=== PATIENT | female | born 2000 | race Caucasian/White ===

== ENCOUNTER 2024-01-28 00:36 | Emergency (ER) | payer SELFPAY ==
--- NOTE | ~2024-01-28 | CT_ITS ---
EXAMINATION: CT ABDOMEN AND PELVIS WITH CONTRAST CLINICAL INFORMATION: Reason for Exam lower abdominal pain brb per rectum COMPARISON: None available. TECHNIQUE: Multidetector volumetric images were obtained from the superior aspect of the liver through the pubic symphysis following administration 85 mL of Omnipaque 350 intravenous contrast. Sagittal and coronal reformatted images were obtained on the technologist's workstation. Oral contrast: No This CT examination was performed using dose optimization techniques as appropriate, variously including the following: *Automated exposure control *Adjustment of mA and/or kV according to patient size (this includes techniques or standardized protocols for targeted exams where dose is matched to indication/reason for exam; i.e. extremities or head) *Use of iterative reconstruction technique DLP: 380 mGy-cm FINDINGS: LUNG BASES: The visualized lung bases are unremarkable. LIVER, GALLBLADDER, AND BILIARY TREE: The liver is prominent in size measuring approximately 20 cm in length. No focal hepatic lesion or biliary ductal dilatation is present. The gallbladder is unremarkable. PANCREAS: Unremarkable. SPLEEN: Unremarkable. ADRENAL GLANDS: Unremarkable. KIDNEYS AND URETERS: Bilateral nephrograms are symmetric. No hydronephrosis or obstructing calculus identified. There is a 3 mm right lower pole renal calculus. BLADDER: Mildly distended and grossly unremarkable. GASTROINTESTINAL TRACT: No evidence of bowel obstruction or significant wall thickening. The appendix is unremarkable. No free fluid or free air is seen. ABDOMINAL WALL: No significant hernia is appreciated. LYMPH NODES: Normal. VASCULAR: Unremarkable. PELVIC VISCERA: Bilateral adnexal cysts are suspected measuring up to 3.6 cm on the left and 3.1 cm on the right. The right cyst measures simple fluid density, while the left cyst measures mildly greater than simple fluid density abscess 27 Hounsfield units. OSSEOUS STRUCTURES: Unremarkable. CT/CT abdomen pelvis w IV con IMPRESSION: 1. No acute bowel abnormality identified. 2. Bilateral adnexal cysts measuring up to 3.6 cm on the left and 3.1 cm on the right. The left cyst measures mildly greater than simple fluid density, which could reflect a hemorrhagic cyst. Sonographic follow-up in 6-8 weeks is recommended. 3. Right lower pole 3 mm renal calculus without hydronephrosis. Electronically signed by: Danial Carver MD 01/28/2024 03:38 AM EDT
[2024-01-28 00:40] VITALS: BP 122/82; PULSE 79; RESP 14; TEMP 36.1; O2SAT 100; BMI 23.0
[2024-01-28 01:43] LABS: Basophils Percent Auto 0.6 % (0-2); Eosinophils Absolute Auto 0.1 X10*3/uL (0.0-0.4); Eosinophils Percent Auto 1.1 % (0-4); Hematocrit 40.2 % (37.0-47.0); Hemoglobin 13.9 g/dl (12.0-16.0); Imm Gran Abs Auto 0.02 X10*3/uL (0.00-0.03); Imm Gran Pct Auto 0.3 % (0.0-0.4); Lymphocytes Absolute Auto 1.5 X10*3/uL (1.2-4.9); Lymphocytes Percent Auto 20.9 % (20-40); MANUAL DIFF FLAG NO; Mean Corpuscular HGB Conc 34.6 g/dl (31.0-35.0); Mean Corpuscular Hemoglobin 31.5 pg (27.0-33.0); Mean Corpuscular Volume 91.2 fL (80.0-98.0); Mean Platelet Volume 9.1 fL (9.4-12.3); Monocytes Absolute Auto 0.6 X10*3/uL (0.1-1.2); Monocytes Percent Auto 9.1 % (2-11); Neutrophils Absolute Auto 4.8 x10*3/uL (2.0-8.3); Platelet Count 204 X10*3/uL (160-400); Red Blood Count 4.41 X10*6/uL (4.20-5.50); White Blood Count 7.1 X10*3/uL (4.8-10.8)
[2024-01-28 02:03] LABS: OBS Int Ctl Valid YES; OBS1 POSITIVE (NEGATIVE)
[2024-01-28 02:06] LABS: Alanine Aminotransferase 9 U/L (0-31); Albumin Level 4.3 g/dL (3.5-5.0); Alkaline Phosphatase 58 U/L (39-117); Anion Gap 13 (12-20); Aspartate Amino Transferase 15 U/L (5-31); Bilirubin Total 0.2 mg/dL (0.0-1.0); Blood Urea Nitrogen 11 mg/dL (9-16); Calcium 8.7 mg/dL (8.4-10.2); Carbon Dioxide 21 mmol/L (22-29); Chloride 110 mmol/L (96-108); Estimated Glomerular Filt Rate > 60; Glucose Random 107 mg/dL (60-115); HCG Quantitative < 2 mIU/mL; Lipase 15 U/L (8-78); Potassium 3.7 mmol/L (3.3-5.1); Sodium 140 mmol/L (135-145); Total Protein 6.9 g/dL (6.5-8.0)
--- NOTE | 2024-01-28 02:16 | ED_ITS ---
HPI - GI Bleed General Chief complaint: GI Bleed Stated complaint: stomach pain Time Seen by Provider: 01/28/24 01:28 Source: patient Mode of arrival: ambulatory Limitations: no limitations History of Present Illness ED Provider: DUKE MATSON Narrative: 23 yo female with PMH of prior rectal bleeding with normal colonscopy a few years back in [place] who notes tonight around 1145pm she started with lower abdominal pressure and cramps then 2 episodes of just steffany blood in toilet. No n/v no fevers. She is not on thinners. She has no hx of Crohns, UC, celiac in her family. No food exposures, abx use, travel hx MD complaint: gross hematochezia Onset (ago): hour(s) (few) Pain Consistency: intermittent Severity: mild Relieving factors: none Exacerbating factors: bowel movement Context: history of GI bleed Associated symptoms: abdominal pain Treatments Prior to Arrival: none Related Data Allergies Allergy/AdvReac Type Severity Reaction Status Date / Time No Known Allergies Allergy Verified 01/28/24 00:42 Review of Systems 2 Review of Systems: Constitutional : No Weight loss, No Fever, No Chills ENT/Mouth : No sore throat, No Rhinorrhea Eyes: No Swelling, No Redness Cardiovascular : No Chest Pain, No SOB, NoEdema Respiratory : No Cough, No Sputum, No Wheezing Gastrointestinal : no Nausea, no Vomiting, no Diarrhea, positive abdominal Pain, pos Hematochezia, No Melena Genitourinary : No Dysuria, No Urinary Frequency, No Hematuria, No Urgency Musculoskeletal : No joint pain, No Myalgias, No Joint Swelling Skin : No Skin Lesions, No rash Neuro : No Weakness, No Numbness, No Dizziness, No Headache Psych : No Anxiety/Panic, No Depression All other systems reviewed and are negative. [facility] Past Medical History Attestation statement: The following information was validated with the patient. Source: old records reviewed Medical History Rectal bleed Social History Social History (Updated 01/28/24 @ 02:26 by Danielle Potts DO) Patient Tobacco Use Status: Never used Tobacco Advance Directives: No Advance Directives Information Provided: Yes Do you have a plan to hurt others: No Plan Physical Exam 2 Vital Signs: Vital Signs: Last Vital Signs Temp 98.2 F 01/28/24 02:41 Pulse 77 01/28/24 02:41 Resp 17 01/28/24 02:41 BP 101/67 01/28/24 02:41 Pulse Ox 94 01/28/24 02:41 O2 Del Method Room Air 01/28/24 02:41 BMI result Body Mass Index 23.0 Appearance: Alert. Oriented X3. No acute distress. Eyes: Pupils equal, round and reactive to light. ENT: Pharynx normal. Neck: Normal inspection. Neck supple. CVS: Normal heart rate and rhythm. Pulses normal. Respiratory: No respiratory distress. Breath sounds normal. Abdomen: Soft and nontender. Rectal: pink noted on fingertip Skin: Skin warm and dry. Normal skin color. Normal skin turgor. Extremities: No lower extremity edema. No calf ttp Neuro: Oriented X 3. No motor deficit. No sensory deficit. Medications Administered Discontinued Medications Generic Name Dose Route Start Last Admin Trade Name Freq PRN Reason Stop Dose Admin Lactated Ringer's 1,000 mls @ 999 mls/hr 01/28/24 01:48 01/28/24 03:48 Lr IV 01/28/24 02:48 Infused .Q1H1M ONE Infusion Iohexol 85 ml 01/28/24 02:28 01/28/24 02:28 Iohexol 350 Mg/Ml 100 Ml Infus..Btl IV 01/28/24 02:29 85 ml ONCE ONE Administration Medical Decision Making Medical Decision Making [facility] Narrative: 23 yo female with PMH of rectal bleeding and prior colonoscopy has rectal bleeding again with lower abdominal pain denies travel, fevers, n/v and abx use at this time will obtain basic labs, occult study and CT scan for colitis. Will monitor closely Differential Diagnosis Differential Diagnoses: The differential diagnosis associated with the presentation includes rectal bleed, colitis Admission/Observation Consideration of admission/observation: Escalation of care including admission/observation considered negative CT scan repeat H/H at 5 hour henry from onset no anemia stable for DC Lab Data [facility] Lab Attestation statement: I reviewed the patient's lab results. 01/28/24 03:59 01/28/24 01:38 Labs: Lab Results 01/28/24 01/28/24 01/28/24 Range/Units 01:38 01:57 02:29 WBC 7.1 (4.8-10.8) X10*3/uL RBC 4.41 (4.20-5.50) X10*6/uL Hgb 13.9 (12.0-16.0) g/dl Hct 40.2 (37.0-47.0) % MCV 91.2 (80.0-98.0) fL MCH 31.5 (27.0-33.0) pg MCHC 34.6 (31.0-35.0) g/dl RDW 12.0 (11.0-16.0) % Plt Count 204 (160-400) X10*3/uL MPV 9.1 L (9.4-12.3) fL Immature Gran % (Auto) 0.3 (0.0-0.4) % Neut % (Auto) 68.0 (45-73) % Lymph % (Auto) 20.9 (20-40) % [place] % (Auto) 9.1 (2-11) % Eos % (Auto) 1.1 (0-4) % Baso % (Auto) 0.6 (0-2) % Lymph # (Auto) 1.5 (1.2-4.9) X10*3/uL [place] # (Auto) 0.6 (0.1-1.2) X10*3/uL Eos # (Auto) 0.1 (0.0-0.4) X10*3/uL Baso # (Auto) 0.0 (0.0-0.2) X10*3/uL Abs Immat Gran (auto) 0.02 (0.00-0.03) X10*3/uL Absolute Neuts (auto) 4.8 (2.0-8.3) x10*3/uL Absolute Nucleated RBC 0.000 (0.0-0.012) X10*3/uL Nucleated RBC % (auto) 0.0 (0.0-0.2) /100WBC Sodium 140 (135-145) mmol/L Potassium 3.7 (3.3-5.1) mmol/L Chloride 110 H (96-108) mmol/L Carbon Dioxide 21 L (22-29) mmol/L Anion Gap 13 (12-20) BUN 11 (9-16) mg/dL Creatinine 0.69 (0.5-1.4) mg/dL Estim Creat Clear Calc 104.0 Estimated GFR > 60 Random Glucose 107 (60-115) mg/dL Calcium 8.7 (8.4-10.2) mg/dL Total Bilirubin 0.2 (0.0-1.0) mg/dL AST 15 (5-31) U/L ALT 9 (0-31) U/L Alkaline Phosphatase 58 (39-117) U/L Total Protein 6.9 (6.5-8.0) g/dL Albumin 4.3 (3.5-5.0) g/dL Lipase 15 (8-78) U/L Beta HCG, Quant < 2 mIU/mL Urine Color Yellow Urine Appearance Clear Urine pH 5.5 (5.0-9.0) Ur Specific [place] <= 1.005 (1.005-1.025) Urine Protein Negative (Neg-Trace) mg/dL Urine Glucose (UA) Negative (Negative) mg/dL Urine Ketones Negative (Negative) mg/dL Urine Blood Negative (Negative) Urine Nitrite Negative (Negative) Ur Leukocyte Esterase Negative (Negative) Urine RBC 0-2 (0-2) /HPF Urine WBC 0-5 (0-5) /HPF Ur Squamous Epith Cells 0-2 (0-2) /HPF Urine Bacteria None Seen (None Seen) Hyaline Casts 0-2 (0-2) /LPF Stool Occult Blood POSITIVE (NEGATIVE) 01/28/24 Range/Units 03:59 WBC 6.6 (4.8-10.8) X10*3/uL RBC 4.35 (4.20-5.50) X10*6/uL Hgb 13.9 (12.0-16.0) g/dl Hct 39.7 (37.0-47.0) % MCV 91.3 (80.0-98.0) fL MCH 32.0 (27.0-33.0) pg MCHC 35.0 (31.0-35.0) g/dl RDW 12.0 (11.0-16.0) % Plt Count 191 (160-400) X10*3/uL MPV 9.1 L (9.4-12.3) fL Immature Gran % (Auto) (0.0-0.4) % Neut % (Auto) (45-73) % Lymph % (Auto) (20-40) % [place] % (Auto) (2-11) % Eos % (Auto) (0-4) % Baso % (Auto) (0-2) % Lymph # (Auto) (1.2-4.9) X10*3/uL [place] # (Auto) (0.1-1.2) X10*3/uL Eos # (Auto) (0.0-0.4) X10*3/uL Baso # (Auto) (0.0-0.2) X10*3/uL Abs Immat Gran (auto) (0.00-0.03) X10*3/uL Absolute Neuts (auto) (2.0-8.3) x10*3/uL Absolute Nucleated RBC 0.000 (0.0-0.012) X10*3/uL Nucleated RBC % (auto) 0.0 (0.0-0.2) /100WBC Sodium (135-145) mmol/L Potassium (3.3-5.1) mmol/L Chloride (96-108) mmol/L Carbon Dioxide (22-29) mmol/L Anion Gap (12-20) BUN (9-16) mg/dL Creatinine (0.5-1.4) mg/dL Estim Creat Clear Calc Estimated GFR Random Glucose (60-115) mg/dL Calcium (8.4-10.2) mg/dL Total Bilirubin (0.0-1.0) mg/dL AST (5-31) U/L ALT (0-31) U/L Alkaline Phosphatase (39-117) U/L Total Protein (6.5-8.0) g/dL Albumin (3.5-5.0) g/dL Lipase (8-78) U/L Beta HCG, Quant mIU/mL Urine Color Urine Appearance Urine pH (5.0-9.0) Ur Specific [place] (1.005-1.025) Urine Protein (Neg-Trace) mg/dL Urine Glucose (UA) (Negative) mg/dL Urine Ketones (Negative) mg/dL Urine Blood (Negative) Urine Nitrite (Negative) Ur Leukocyte Esterase (Negative) Urine RBC (0-2) /HPF Urine WBC (0-5) /HPF Ur Squamous Epith Cells (0-2) /HPF Urine Bacteria (None Seen) Hyaline Casts (0-2) /LPF Stool Occult Blood (NEGATIVE) Independent Interpretation I performed an independent interpretation of an: CT Scan (no colitis) Radiology Impression Discussion of test interpretation with radiology: I have reviewed the radiologist's reading. Discharge Plan Discharge Clinical Impression: Bright red rectal bleeding Patient Disposition: Home, Self-Care Instructions: Rectal Bleeding (ED) Additional Instructions: labs reassuring and repeat no drop in hemoglobin return for worsening symptoms or any other concerns follow up with outpatient ultrasound of your ovaries given CT scan please call the GI doctor office listed below return for worsening bleeding, fevers, pain, clots or any other concerns avoid motrin and aspirin CT/CT abdomen pelvis w IV con IMPRESSION: 1. No acute bowel abnormality identified. 2. Bilateral adnexal cysts measuring up to 3.6 cm on the left and 3.1 cm on the right. The left cyst measures mildly greater than simple fluid density, which could reflect a hemorrhagic cyst. Sonographic follow-up in 6-8 weeks is recommended. 3. Right lower pole 3 mm renal calculus without hydronephrosis. Referrals: [facility] [place] [facility] [Provider Group] Stand Alone Forms: Work/School Release Print Language: Urdu
[2024-01-28] MEDS: iohexoL 350 MG/ML 100 ML INFUS..BTL 85 ML IV (02:28)
[2024-01-28] MEDS: Lactated Ringers 1,000 ML 999 ML IV (02:28)
[2024-01-28 02:36] LABS: Appearance Urine Clear; Color Urine Yellow; Glucose Urine UA Negative (Negative); Leukocyte Esterase Urine Negative (Negative); Nitrite Urine Negative (Negative); PH 5.5 (5.0-9.0); Specific Gravity - Urine <= 1.005 (1.005-1.025); Urine Blood Negative (Negative); Urine Ketones Negative (Negative); Urine Protein Negative (Neg-Trace)
[2024-01-28 02:41] VITALS: BP 101/67; PULSE 77; RESP 17; TEMP 36.8; O2SAT 94
[2024-01-28 02:59] LABS: Bacteria Urine None Seen (None Seen); Hyaline Casts Urine 0-2 /LPF (0-2); RBC Urine 0-2 /HPF (0-2); Squamous Epithelial Cell Urine 0-2 /HPF (0-2); WBC Urine 0-5 /HPF (0-5)
--- NOTE | 2024-01-28 04:01 | PC.NURSE ---
repeat labs obtained/sent to lab.
[2024-01-28 04:04] LABS: Hematocrit 39.7 % (37.0-47.0); Hemoglobin 13.9 g/dl (12.0-16.0); Mean Corpuscular Volume 91.3 fL (80.0-98.0); Mean Platelet Volume 9.1 fL (9.4-12.3); Platelet Count 191 X10*3/uL (160-400); Red Blood Count 4.35 X10*6/uL (4.20-5.50); White Blood Count 6.6 X10*3/uL (4.8-10.8)
[2024-01-28 04:24] VITALS: BP 110/69; PULSE 80; RESP 16; TEMP 36.4; O2SAT 100
== END 2024-01-28 04:25 | disposition home or self-care (01) ==
PROVIDERS: Physician Assistant; Emergency Provider Emergency Medicine
DX: K62.5 Hemorrhage of anus and rectum (principal); R10.2 Pelvic and perineal pain; R11.0 Nausea; Z79.899 Other long term (current) drug therapy
CPT/HCPCS: 36415; 74177; 80053; 81001; 82272; 83690; 84702; 85025; 85027; 96360; 99284; J7120; Q9967

== ENCOUNTER 2024-04-07 07:20 | Outpatient (AMB) | payer BC, SELFPAY ==
--- NOTE | 2024-04-07 07:26 | MHC.OFFVIS ---
Vital Signs 04/07/24 07:37 Height 5 ft 3 in Weight 131 lb BMI 23.2 BP 97/61 Blood Pressure Location Lt brachial Position Sitting Pulse 81 Intake Visit Reasons: ER referred, Rectal Bleeding Intake Note: Patient new consult after ER visit due her rectal bleeding. Patient cc: rectal bleeding with burning sensation on and off. Denies any other GI issues for today visit. Momd Teacher Required: No Accompanied by: Self / Same As Patient Allergies No Known Allergies Allergy (Verified 04/07/24 07:25) Medication List - Last Reconciled 04/07/24 by Celi Byrne MD No Known Home Meds HPI HPI ER referred, Rectal Bleeding: Details: GI clinic visit for this 23 YF for evaluation of rectal bleeding TODAY'S VISIT: Rectal bleeding on and off for a few years. Had a colonoscopy in 2021 at [place], [place] and was normal per patient - ? internal hemorrhoids. [place] better for a while and then she had recurrent symptoms Rectal bleeding almost daily -usually BRB, ?mixed with stool, in the toilet water and on the TP. Notes sharp stomach pains, burning and itching in the anal area. BMs can be intermittently painful. Notes cramps in the lower back. Goes back and forth between constipation and diarrhea (constipation 3-4/7 days) - no medication. Eats a lot of bananas, asparagus a few nights a week. She can have acid reflux every other day depending on what she eats. Notes regurgitation if she eats pasta. Patient denies symptoms of dysphagia, change in appetite. Has gained 10 lbs over the past few months. Patient denies major cardiac or pulmonary problems, Pt admits to loud snoring and denies sleep apnea Denies problems with anesthesia in the past. Denies being on chronic anticoagulation. Takes Ibuprofen infrequently for menstrual cramps. 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 Patient denies known family history of colon polyps, colon cancer or other GI malignancies. PAST EGD/COLONOSCOPY: 2021 LABS IN [place] [facility] : Reviewed IMAGING STUDIES: 01/[address] SCAN SHOWED: 1. No acute bowel abnormality identified. 2. Bilateral adnexal cysts measuring up to 3.6 cm on the left and 3.1 cm on the right. The left cyst measures mildly greater than simple fluid density, which could reflect a hemorrhagic cyst. Sonographic follow-up in 6-8 weeks is recommended. 3. Right lower pole 3 mm renal calculus without hydronephrosis. PAST GI HISTORY BY REVIEW OF MEDICAL RECORDS: 01/28/24 PATIENT WAS SEEN AT [facility] [place] [facility] WITH RECTAL BLEEDIN yo female with PMH of prior rectal bleeding with normal colonscopy a few years back in [place] who notes tonight around 1145pm she started with lower abdominal pressure and cramps then 2 episodes of just steffany blood in toilet. No n/v no fevers. She is not on thinners. She has no hx of Crohns, UC, celiac in her family. No food exposures, abx use, travel hx complaint: gross hematochezia Onset (ago): hour(s) (few) Pain Consistency: intermittent Severity: mild Relieving factors: none Exacerbating factors: bowel movement Context: history of GI bleed Associated symptoms: abdominal pain Treatments Prior to Arrival: none 23 yo female with PMH of rectal bleeding and prior colonoscopy has rectal bleeding again with lower abdominal pain denies travel, fevers, n/v and abx use at this time will obtain basic labs, occult study and CT scan for colitis. Will monitor closely Differential Diagnosis Differential Diagnoses: The differential diagnosis associated with the presentation includes rectal bleed, colitis Admission/Observation Consideration of admission/observation: Escalation of care including admission/observation considered negative CT scan repeat H/H at 5 hour henry from onset no anemia stable for DC [facility] Medical History (Updated 04/07/24 @ 08:05 by Celi Byrne MD) Rectal bleed Surgical History (Updated 04/07/24 @ 07:44 by Sadie Feliciano) H/O eye surgery History of ear surgery Family History (Updated 04/07/24 @ 07:40 by Sadie Feliciano) Paternal Grandfather Lung cancer Paternal Grandmother Alzheimer disease Social History (Updated 04/07/24 @ 07:30 by Sadie Feliciano) Household Members: None Alcohol intake: current Alcohol intake frequency: a few times a month Patient Tobacco Use Status: Never used Tobacco e-Cigarette/Vaping Use: Former Use Substance Use Type: Marijuana Review of Systems Const Reports fatigue, Denies fever(s), Denies headache(s), Reports weight gain (wt gain of 10 lbs) and Denies weight loss Eyes Denies eye discharge and Denies irritation ENT Reports Normal hearing present, Denies dysphagia, Denies dizziness and Denies headache(s) Card Denies chest pain, Denies leg edema, Reports dyspnea and Denies dyspnea on exertion Resp Reports cough, Reports dyspnea, Denies dyspnea on exertion and Denies wheezing GI Reports abdominal pain, Reports bloating, Reports hematochezia, Denies change in bowel habits, Reports constipation, Denies dysphagia, Denies heartburn and Reports diarrhea Denies difficulty voiding, Denies dysuria and Reports other (frequent urination, LMP 04/04) Musc Denies back pain and Denies arthralgias Skin/Breast Denies pruritus, Denies rash and Denies jaundice Neuro Reports Normal hearing present, Denies Abnormal speech present, Denies dizziness, Denies headache(s) and Denies seizure-like activity Psych Reports anxiety, Denies depression and Denies panic attacks Endo Denies cold intolerance, Reports fatigue, Denies flushing and Denies heat intolerance Tomasz/Lymph Denies easy bleeding and Denies easy bruising Aller/Immun Denies wheezing Physical Exam Vital Signs: Last Vital Signs Pulse 81 04/07/24 07:37 BP 97/61 04/07/24 07:37 BMI result Body Mass Index 23.2 Const General: healthy appearing and no acute distress Nutritional Appearance: average body habitus Orientation/consciousness: patient oriented x3 Limitations: no limitations HEENT Head: Yes normal to inspection Ears: hearing grossly normal bilaterally Mouth: Normal oral and palatal mucosa present Eyes Sclerae: sclerae normal Pupils: Equal, round and reactive pupils present Neck Neck: Yes normal visual inspection Chest Chest palpation & inspection: normal inspection of the chest Resp Effort & Inspection: normal respiratory effort Auscultation: clear to auscultation bilaterally Cardio Palpation: normal PMI Rate: regular rate Rhythm: regular rhythm Heart sounds: S1 normal heart sound present, S2 normal heart sound present and no murmurs GI Palpation (GI): Soft to palpation, nontender and No hepatosplenomegaly present Auscultation: normal bowel sounds Rectal Exam - Female: deferred Skin General skin exam: no rashes or lesions noted Neuro General: patient oriented x3, gait normal and moves all extremities Cranial nerves: Yes Equal, round and reactive pupils present and Yes Normal hearing present Speech: No Abnormal speech present Psych Appearance: grossly normal Mental Status: mental status grossly normal Assessment & Plan Assessment & Plan (1) IBS (irritable bowel syndrome): Code(s): K58.9 - Irritable bowel syndrome, unspecified Category: Medical (2) Abdominal bloating: Code(s): R14.0 - Abdominal distension (gaseous) Category: Medical (3) Abnormal CT scan, pelvis: Code(s): R93.5 - Abnormal findings on diagnostic imaging of other abdominal regions, including retroperitoneum Category: Medical Plan: Abd CT showed: Bilateral adnexal cysts measuring up to 3.6 cm on the left and 3.1 cm on the right. The left cyst measures mildly greater than simple fluid density, which could reflect a hemorrhagic cyst. Sonographic follow-up in 6-8 weeks is recommended. Plevic US ordered. (4) Heartburn: Code(s): R12 - Heartburn Category: Medical Plan 23 YF with diarrhea alternating with constipation likely due to IBS, versus celaic sprue, SIBO and less likely IBD Rectal bleeding likely from hemorrhoids or rectal irritation due to constipation Pt advised labs and a pelvic US Fibre supplement and Hydrocortisone cream for hemorrhoids Patient handout given on IBS and constipation. She will be scheduled for an upper endoscopy and a flexible sigmoidoscopy. Follow-up in 2 months Orders: Orders Vitamin B12 and Folate Today K58.9 - Irritable bowel syndrome, unspecified, R12 - Heartburn, R14.0 - Abdominal distension (gaseous) Vitamin D 25-OH Total Today K58.9 - Irritable bowel syndrome, unspecified, R12 - Heartburn, R14.0 - Abdominal distension (gaseous) Ferritin Today K58.9 - Irritable bowel syndrome, unspecified, R12 - Heartburn, R14.0 - Abdominal distension (gaseous) Transglutaminase Ab IgG Today K58.9 - Irritable bowel syndrome, unspecified, R12 - Heartburn, R14.0 - Abdominal distension (gaseous) C Reactive Protein Today K58.9 - Irritable bowel syndrome, unspecified Complete Blood Count Auto Diff Today K58.9 - Irritable bowel syndrome, unspecified, R12 - Heartburn, R14.0 - Abdominal distension (gaseous) Transglutaminase IgA Today K58.9 - Irritable bowel syndrome, unspecified, R12 - Heartburn, R14.0 - Abdominal distension (gaseous) US pelvic and transvaginal Today R93.5 - Abnormal findings on diagnostic imaging of other abdominal regions, including retroperitoneum EGD/Sigmoid Combo -GI Use Only Today [facility] SGI Today K58.9 - Irritable bowel syndrome, unspecified Medications: New hydrocortisone 2.5% 1 appl ID BID-QID PRN 30 grams 2RF hemorrhoids 30 days psyllium husk mix into at least 8 oz of water or juice before administering 1 tbsp PO BID 480 grams 2RF 30 days Coding Level of Care Code New Pt Level 4 (95307) Diagnoses IBS (irritable bowel syndrome) K58.9 Abdominal bloating R14.[address] scan, pelvis R93.5 Heartburn R12 Time Spent (min) 30
[2024-04-07 07:37] VITALS: BP 97/61; PULSE 81; BMI 23.2
== END 2024-04-07 08:32 | disposition home or self-care (01) ==
PROVIDERS: Visit Provider Internal Medicine Gastroenterology
DX: K58.9 Irritable bowel syndrome, unspecified (principal); R14.0 Abdominal distension (gaseous); R93.5 Abnormal findings on diagnostic imaging of other abdominal regions, including retroperitoneum; R12 Heartburn
CPT/HCPCS: 99204

== ENCOUNTER → 2024-04-07 07:20 | Outpatient (BNVA) | payer BC, SELFPAY | PROVIDERS: Visit Provider Internal Medicine Gastroenterology ==